=== PATIENT | female | born 1965 | race Hispanic/Latino ===

== ENCOUNTER 2020-08-04 07:46 | Emergency (ER) | payer OTHER ==
[~2020-08-04] VITALS: Ht 170.2 cm; Wt 59.9 kg
[~2020-08-04 07:46] MED LIST: BACTRIM DS TAB1 EACH PO; CYANOCOBAL1000 MCG/M IV; OMEPRAZOLE40 MG PO; REGLAN10 MG PO
[2020-08-04] MEDS ORDERED: KETOROLAC TROMETHAMINE 60 MG/2 ML VIAL IM ONE (08:00)
[2020-08-04] MEDS ORDERED: HYDROCODONE/APAP 5MG-325MG TAB PO ONE (08:00)
[2020-08-04] MEDS ORDERED: LIDOCAINE 4% PATCH TP SCH (09:00)
[2020-08-04 10:31] VITALS: BP 123/72
[2020-08-04] MEDS ORDERED: LIDOPATCH1 EACH TOP (10:36)
[2020-08-04] MEDS ORDERED: ULTRAM50 MG PO (10:36)
== END 2020-08-04 10:50 | disposition home or self-care (01) ==
LOC: ER 08:10
DX: R07.89 Other chest pain (principal); X50.9XXA Other and unspecified overexertion or strenuous movements or postures, initial encounter; Y99.0 Civilian activity done for income or pay; D64.9 Anemia, unspecified
CPT/HCPCS: 71101; 99283; J1885